=== PATIENT | female | born 1940 | race Caucasian/White ===

== ENCOUNTER 2017-06-21 15:49 | Inpatient (IN) ==
[2017-06-21] MEDS ORDERED: SODIUM CHLORIDE 0.9% 500 ML IV STA (16:43)
[2017-06-21] MEDS ORDERED: HYDROmorphone 2 MG/1 ML VIAL IV STA (16:43)
[2017-06-21] MEDS ORDERED: ONDANSETRON 4 MG/2 ML VIAL IV STA ×2 (16:43→21:16)
[2017-06-21] MEDS ORDERED: PANTOPRAZOLE 40 MG VIAL IV STA (16:43)
[2017-06-21] MEDS ORDERED: PANTOPRAZOLE 40 MG VIAL IV ONE (16:53)
[2017-06-21] MEDS ORDERED: ONDANSETRON 4 MG/2 ML VIAL ONE ×2 (16:53→21:20)
[2017-06-21] MEDS ORDERED: HYDROmorphone 2 MG/1 ML VIAL ONE ×2 (16:54→21:20)
[2017-06-21 17:37] LABS: Apearance,Urine Slightly Hazy (Clear); Bacteria,Urine Many /HPF (Few); Bilirubin,Urine Negative (Negative); Blood, Urine Small mg/dL (Negative); Glucose,Urine (UA) 50 mg/dL (Negative); Ketones,Urine 20 mg/dL (Negative); Mucus,Urine Occasional /LPF (Occasional); Nitrite,Urine Negative (Negative); Protein,Urine >=500 MG/DL; RBC,Urine 3 /HPF (0-4); Urine Color Yellow (Yellow); Urine Specific Gravity 1.016 (1.001-1.035); Urine Urobilinogen < 2.0 EU/DL (0.2-1.0); WBC,Urine 27 /HPF (0-6)
[2017-06-21 17:59] LABS: Basophils # 0.1 10*3/uL (0.0-0.2); Basophils % 0.9 % (0.0-0.8); Eosinophils % 0.1 % (0.00-10.9); Hematocrit 39.6 VOL% (35.7-47.0); Hemoglobin 12.7 GM/DL (12.0-16.0); Immature Granulocytes % 0.4 %; Immature Granulocytes Absolute 0.03 #; Lymphocytes # 0.9 10*3/uL (1.4-4.0); Lymphocytes % 12.6 % (21.3-54.2); Mean Corpuscular HGB Conc 32.1 GM/DL (32-36); Mean Corpuscular Hemoglobin 26 PG (27-34); Mean Platelet Volume 12.3 FL (9.6-12.0); Monocytes # 0.6 10*3/uL (0.11-0.8); Monocytes % 8.6 % (1.7-12.7); Neutrophils # 5.4 10*3/uL (1.4-7.4); Neutrophils % 77.4 % (38.7-73.9); Platelet Count 220 T/CUMM (130-400); Red Blood Count 4.83 MC/CUMM (3.8-5.5); Red Cell Distribution Width 15.4 % (9.3-17.3)
[2017-06-21 18:29] LABS: Lactic Acid 1.5 MMOL/L (0.4-2.0)
[2017-06-21 18:31] LABS: Albumin 3.4 G/DL (3.4-5.0); Bilirubin,Total 0.9 MG/DL (0.2-1.0); Calcium 8.5 MG/DL (8.5-10.1); Osmolality,Calculated 283.5 MOS/KG (273-304); Potassium 3.8 MMOL/L (3.5-5.1); Total Protein 6.1 G/DL (6.4-8.3); Troponin I Only 0.018 NG/ML (0.00-0.045)
[2017-06-21] MEDS ORDERED: cefTRIAXone 1,000 MG in SODIUM CHLORIDE 0.9% 100 ML IV STA (21:07)
[2017-06-21] MEDS ORDERED: HYDROmorphone 2 MG/1 ML VIAL IV ONE (21:15)
[2017-06-21] MEDS ORDERED: cefTRIAXone 1,000 MG VIAL ONE (21:20)
[2017-06-21] MEDS ORDERED: ONDANSETRON 4 MG/2 ML VIAL IV PRN (23:03)
[2017-06-21] MEDS ORDERED: ZALEPLON 5 MG CAPSULE PO PRN (23:03)
[2017-06-21] MEDS ORDERED: PROMETHAZINE 25 MG/1 ML VIAL IM PRN (23:03)
[2017-06-21] MEDS ORDERED: DEXTROSE 50% 25 GM/50 ML VIAL IV PRN (23:49)
[2017-06-21] MEDS ORDERED: GLUCAGON 1 MG VIAL IM PRN (23:49)
[2017-06-21] MEDS ORDERED: hydrALAZINE 20 MG/1 ML VIAL IV PRN (23:49)
[2017-06-22] MEDS: SODIUM BICARB INJ 50 MEQ in SODIUM CHLORIDE 0.45% 1,000 ML IV SCH ×2 (01:06→13:05)
[2017-06-22 05:26] LABS: Basophils # 0.1 10*3/uL (0.0-0.2); Basophils % 0.7 % (0.0-0.8); Eosinophils % 0.1 % (0.00-10.9); Hematocrit 39.7 VOL% (35.7-47.0); Hemoglobin 12.6 GM/DL (12.0-16.0); Immature Granulocytes % 0.7 %; Immature Granulocytes Absolute 0.05 #; Lymphocytes # 1.3 10*3/uL (1.4-4.0); Lymphocytes % 18.8 % (21.3-54.2); Mean Corpuscular HGB Conc 31.7 GM/DL (32-36); Mean Corpuscular Hemoglobin 26 PG (27-34); Mean Corpuscular Volume 83.2 FL (87-102); Monocytes # 0.7 10*3/uL (0.11-0.8); Monocytes % 10.4 % (1.7-12.7); Neutrophils # 4.9 10*3/uL (1.4-7.4); Neutrophils % 69.3 % (38.7-73.9); Platelet Count 213 T/CUMM (130-400); Red Blood Count 4.77 MC/CUMM (3.8-5.5); Red Cell Distribution Width 15.5 % (9.3-17.3)
[2017-06-22 05:59] LABS: Albumin 3.3 G/DL (3.4-5.0); Bilirubin,Total 0.6 MG/DL (0.2-1.0); Calcium 8.6 MG/DL (8.5-10.1); Osmolality,Calculated 286.3 MOS/KG (273-304); Potassium 3.8 MMOL/L (3.5-5.1); Total Protein 5.9 G/DL (6.4-8.3)
[2017-06-22] MEDS: INSULIN REGULAR 100 UNIT/ML SUBCUT SCH ×3 (07:41→16:40)
[2017-06-22] MEDS ORDERED: CARVEDILOL 12.5 MG TABLET PO SCH (09:00)
[2017-06-22] MEDS ORDERED: ENOXAPARIN 30 MG/0.3 ML SYRINGE SUBCUT SCH (09:00)
[2017-06-22] MEDS ORDERED: sitaGLIPtin 25 MG TABLET PO SCH (09:00)
[2017-06-22] MEDS ORDERED: MELOXICAM 7.5 MG TABLET PO SCH (09:00)
[2017-06-22] MEDS ORDERED: PANTOPRAZOLE 40 MG TABLET PO SCH (09:00)
[2017-06-22] MEDS ORDERED: ASPIRIN EC 81 MG TABLET PO SCH (09:00)
[2017-06-22 16:12] VITALS: BP 151/70
[2017-06-22] MEDS ORDERED: ATORVASTATIN 20 MG TABLET PO SCH (21:00)
[2017-06-22] MEDS ORDERED: cefTRIAXone 1,000 MG in SYRINGE 1 EACH IV SCH (22:00)
== END 2017-06-22 18:07 | disposition home health service (06) | DRG 690 ==
LOC: EDUNIT# → EDBD → N.ED 15:49 → N.EDINP 22:20 → N.3E 23:20
PROVIDERS: ADMIT Internal Medicine; ATTEND Internal Medicine

== ENCOUNTER 2017-06-27 14:49 | Inpatient (IN) ==
[2017-06-27] MEDS ORDERED: SODIUM CHLORIDE 0.9% 1,000 ML IV STA (15:15)
[2017-06-27] MEDS ORDERED: DICYCLOMINE 20 MG/2 ML AMP IM ONE (15:15)
[2017-06-27] MEDS ORDERED: ONDANSETRON 4 MG/2 ML VIAL IV STA (15:15)
[2017-06-27] MEDS ORDERED: LOPERAMIDE 2 MG CAPSULE PO STA (15:15)
[2017-06-27] MEDS ORDERED: METOCLOPRAMIDE 10 MG/2 ML VIAL IV STA (15:15)
[2017-06-27 16:41] LABS: Basophils # 0.1 10*3/uL (0.0-0.2); Eosinophils # 0.2 10*3/uL (0.0-0.87); Eosinophils % 1.9 % (0.00-10.9); Hematocrit 39.8 VOL% (35.7-47.0); Hemoglobin 12.6 GM/DL (12.0-16.0); Immature Granulocytes % 1.1 %; Immature Granulocytes Absolute 0.09 #; Lymphocytes # 1.5 10*3/uL (1.4-4.0); Lymphocytes % 18.6 % (21.3-54.2); Mean Corpuscular HGB Conc 31.7 GM/DL (32-36); Mean Corpuscular Hemoglobin 26 PG (27-34); Mean Corpuscular Volume 82.6 FL (87-102); Monocytes # 0.9 10*3/uL (0.11-0.8); Monocytes % 10.9 % (1.7-12.7); Neutrophils # 5.4 10*3/uL (1.4-7.4); Neutrophils % 66.5 % (38.7-73.9); Platelet Count 149 T/CUMM (130-400); Red Blood Count 4.82 MC/CUMM (3.8-5.5); Red Cell Distribution Width 15.3 % (9.3-17.3); White Blood Count 8.1 T/CUMM (4-12)
[2017-06-27 17:01] LABS: Bilirubin,Total 0.4 MG/DL (0.2-1.0); Calcium 8.3 MG/DL (8.5-10.1); Osmolality,Calculated 291.8 MOS/KG (273-304); Potassium 3.1 MMOL/L (3.5-5.1); Total Protein 5.8 G/DL (6.4-8.3)
[2017-06-27] MEDS ORDERED: LOPERAMIDE 2 MG CAPSULE ONE (17:06)
[2017-06-27] MEDS ORDERED: ONDANSETRON 4 MG/2 ML VIAL ONE (17:06)
[2017-06-27] MEDS ORDERED: METOCLOPRAMIDE 10 MG/2 ML VIAL ONE (17:06)
[2017-06-27] MEDS ORDERED: DICYCLOMINE 20 MG TABLET ONE (17:06)
[2017-06-27 18:16] LABS: Apearance,Urine Slightly Hazy (Clear); Bilirubin,Urine Negative (Negative); Blood, Urine Negative (Negative); Glucose,Urine (UA) Negative (Negative); Hyaline Casts,Urine 1 /LPF (0-3); Ketones,Urine Negative (Negative); Mucus,Urine Occasional /LPF (Occasional); Nitrite,Urine Negative (Negative); Protein,Urine >=500 MG/DL; Squamous Epithelial Cell,Urine Occasional /HPF (0-10); Urine Color Yellow (Yellow); Urine Specific Gravity 1.015 (1.001-1.035); Urine Urobilinogen < 2.0 EU/DL (0.2-1.0); WBC,Urine 1 /HPF (0-6)
[2017-06-27] MEDS ORDERED: POTASSIUM CHLORIDE RIDER 10 MEQ in PREMIX 1 EACH IV PRN (18:52)
[2017-06-27] MEDS ORDERED: KETOROLAC 10 MG TABLET PO PRN (18:55)
[2017-06-27] MEDS: SODIUM CHLORIDE 0.9% 1,000 ML IV SCH (20:54)
[2017-06-27] MEDS: POTASSIUM CHLORIDE 20 MEQ TABLET PO PRN (22:10)
[2017-06-28] MEDS: POTASSIUM CHLORIDE 20 MEQ TABLET PO PRN ×3 (00:20→04:35)
[2017-06-28] MEDS: SODIUM CHLORIDE 0.9% 1,000 ML IV SCH ×3 (04:35→21:40)
[2017-06-28 05:23] LABS: Basophils # 0.1 10*3/uL (0.0-0.2); Basophils % 1.1 % (0.0-0.8); Eosinophils # 0.2 10*3/uL (0.0-0.87); Eosinophils % 2.7 % (0.00-10.9); Hematocrit 36.8 VOL% (35.7-47.0); Hemoglobin 11.7 GM/DL (12.0-16.0); Immature Granulocytes % 1.1 %; Immature Granulocytes Absolute 0.08 #; Lymphocytes # 1.9 10*3/uL (1.4-4.0); Lymphocytes % 25.5 % (21.3-54.2); Mean Corpuscular HGB Conc 31.8 GM/DL (32-36); Mean Corpuscular Hemoglobin 26 PG (27-34); Mean Corpuscular Volume 83.1 FL (87-102); Mean Platelet Volume 13.8 FL (9.6-12.0); Monocytes # 0.7 10*3/uL (0.11-0.8); Monocytes % 10.1 % (1.7-12.7); Neutrophils # 4.4 10*3/uL (1.4-7.4); Neutrophils % 59.5 % (38.7-73.9); Platelet Count 135 T/CUMM (130-400); Red Blood Count 4.43 MC/CUMM (3.8-5.5); Red Cell Distribution Width 15.3 % (9.3-17.3); White Blood Count 7.4 T/CUMM (4-12)
[2017-06-28 05:52] LABS: Calcium 8.2 MG/DL (8.5-10.1); Osmolality,Calculated 292.4 MOS/KG (273-304); Potassium 3.8 MMOL/L (3.5-5.1)
[2017-06-28] MEDS: PANTOPRAZOLE 40 MG TABLET PO SCH (09:58)
[2017-06-28] MEDS ORDERED: DEXTROSE 50% 25 GM/50 ML VIAL IV PRN (12:53)
[2017-06-28] MEDS ORDERED: GLUCAGON 1 MG VIAL IM PRN (12:53)
[2017-06-28] MEDS: INSULIN REGULAR 100 UNIT/ML SUBCUT SCH ×2 (21:11→21:13)
[2017-06-29] MEDS: ONDANSETRON 4 MG/2 ML VIAL IV PRN ×2 (00:32→08:12)
[2017-06-29] MEDS: SODIUM CHLORIDE 0.9% 1,000 ML IV SCH ×4 (03:00→21:25)
[2017-06-29 05:52] LABS: Basophils # 0.1 10*3/uL (0.0-0.2); Basophils % 0.8 % (0.0-0.8); Eosinophils # 0.3 10*3/uL (0.0-0.87); Eosinophils % 3.3 % (0.00-10.9); Hemoglobin 11.3 GM/DL (12.0-16.0); Immature Granulocytes % 0.8 %; Immature Granulocytes Absolute 0.07 #; Lymphocytes # 1.5 10*3/uL (1.4-4.0); Mean Corpuscular HGB Conc 31.4 GM/DL (32-36); Mean Corpuscular Hemoglobin 26 PG (27-34); Mean Corpuscular Volume 83.7 FL (87-102); Mean Platelet Volume 14.4 FL (9.6-12.0); Monocytes # 0.8 10*3/uL (0.11-0.8); Monocytes % 9.4 % (1.7-12.7); Neutrophils # 6.2 10*3/uL (1.4-7.4); Neutrophils % 68.7 % (38.7-73.9); Platelet Count 116 T/CUMM (130-400); Red Cell Distribution Width 15.6 % (9.3-17.3)
[2017-06-29 06:16] LABS: Calcium 8.3 MG/DL (8.5-10.1); Osmolality,Calculated 290.7 MOS/KG (273-304); Potassium 3.9 MMOL/L (3.5-5.1)
[2017-06-29] MEDS: INSULIN REGULAR 100 UNIT/ML SUBCUT SCH ×5 (07:30→22:03)
[2017-06-29] MEDS: PANTOPRAZOLE 40 MG TABLET PO SCH (08:11)
[2017-06-29] MEDS: CARVEDILOL 12.5 MG TABLET PO SCH (14:00)
[2017-06-29] MEDS ORDERED: FLUCONAZOLE INJ 200 MG in PREMIX 1 EACH IV ONE (17:33)
[2017-06-29] MEDS ORDERED: CITALOPRAM 20 MG TABLET PO SCH (21:00)
[2017-06-29 22:40] LABS: Protein/Creatinine Ratio,Urine 0.9 RATIO
[2017-06-30] MEDS: SODIUM CHLORIDE 0.9% 1,000 ML IV SCH ×2 (03:56→12:05)
[2017-06-30] MEDS: PANTOPRAZOLE 40 MG TABLET PO SCH (08:44)
[2017-06-30] MEDS: CARVEDILOL 12.5 MG TABLET PO SCH (08:44)
[2017-06-30] MEDS: INSULIN REGULAR 100 UNIT/ML SUBCUT SCH ×2 (08:46→11:27)
[2017-06-30] MEDS ORDERED: ASPIRIN EC 81 MG TABLET PO SCH (09:00)
[2017-06-30] MEDS ORDERED: ATORVASTATIN 20 MG TABLET PO SCH (09:00)
[2017-06-30 11:16] VITALS: BP 153/74
== END 2017-06-30 14:21 | disposition swing bed (61) | DRG 684 ==
LOC: EDUNIT# → EDBD → N.ED 14:49 → N.EDINP 17:56 → N.3E 19:50
PROVIDERS: ADMIT Internal Medicine Geriatric Medicine; ATTEND Internal Medicine Geriatric Medicine

== ENCOUNTER 2021-01-21 14:02 | Inpatient (IN) ==
[2021-01-21 16:39] LABS: Basophils # 0.1 10*3/uL (0.0-0.2); Basophils % 1.3 % (0.0-0.8); Eosinophils # 0.4 10*3/uL (0.0-0.87); Hematocrit 41.2 VOL% (35.7-47.0); Hemoglobin 13.1 GM/DL (12.0-16.0); Immature Granulocytes % 0.3 %; Immature Granulocytes Absolute 0.02 #; Lymphocytes # 0.9 10*3/uL (1.4-4.0); Lymphocytes % 15.4 % (21.3-54.2); Mean Corpuscular HGB Conc 31.8 GM/DL (32-36); Mean Corpuscular Volume 89.2 FL (87-102); Mean Platelet Volume 12.6 FL (9.6-12.0); Monocytes % 10.8 % (1.7-12.7); Neutrophils % 65.2 % (38.7-73.9); Platelet Count 116 T/CUMM (130-400); Red Blood Count 4.62 MC/CUMM (3.8-5.5); Red Cell Distribution Width 13.4 % (9.3-17.3); White Blood Count 6.1 T/CUMM (4-12)
[2021-01-21 16:59] LABS: Albumin 3.2 G/DL (3.4-5.0); Bilirubin,Total 0.6 MG/DL (0.20-1.00); Calcium 8.6 MG/DL (8.5-10.1); Osmolality,Calculated 291.1 MOS/KG (273-304); Potassium 4.1 MMOL/L (3.5-5.1); Total Protein 5.4 G/DL (6.4-8.2)
[2021-01-21 17:18] LABS: Ovalocytes Few
[2021-01-21 17:19] LABS: Burr Cells Slight; Microcytosis Slight
[2021-01-21] MEDS ORDERED: hydrALAZINE 20 MG/1 ML VIAL ONE (17:35)
[2021-01-21] MEDS ORDERED: hydrALAZINE 20 MG/1 ML VIAL IV STA ×2 (17:35→20:00)
[2021-01-21 18:05] LABS: Bacteria,Urine Moderate /HPF (Few); Bilirubin,Urine Negative (Negative); Blood, Urine Negative (Negative); Glucose,Urine (UA) 50 mg/dL (Negative); Ketones,Urine 5 mg/dL (Negative); Mucus,Urine Occasional /LPF (Occasional); Nitrite,Urine Negative (Negative); Protein,Urine >=500 MG/DL; Urine Appearance CLEAR (Clear); Urine Color Yellow (Yellow); Urine Specific Gravity 1.018 (1.001-1.035); Urine Urobilinogen < 2.0 EU/DL (0.2-1.0)
[2021-01-21 18:23] LABS: Ammonia < 10 UMOL/L (11-32)
[2021-01-21 18:26] LABS: Lactic Acid 1.2 MMOL/L (0.4-2.0)
[2021-01-21] MEDS: carvediloL 6.25 MG TABLET PO SCH (23:45)
[2021-01-21] MEDS ORDERED: NITROGLYCERIN 2% OINT 1 INCH/GM PACK TOP STA (23:55)
[2021-01-22] MEDS ORDERED: ONDANSETRON 4 MG/2 ML VIAL IV PRN (03:08)
[2021-01-22] MEDS ORDERED: ACETAMINOPHEN 325 MG TABLET PO PRN (03:08)
[2021-01-22] MEDS ORDERED: GLUCAGON 1 MG VIAL IM PRN (03:08)
[2021-01-22] MEDS ORDERED: guaiFENesin/DM ER 600-30 MG TABLET PO PRN (03:08)
[2021-01-22] MEDS ORDERED: DEXTROSE 50% 25 GM/50 ML VIAL IV PRN (03:08)
[2021-01-22 05:36] LABS: Basophils # 0.1 10*3/uL (0.0-0.2); Basophils % 1.4 % (0.0-0.8); Eosinophils # 0.2 10*3/uL (0.0-0.87); Eosinophils % 2.6 % (0.00-10.9); Hematocrit 43.4 VOL% (35.7-47.0); Hemoglobin 13.7 GM/DL (12.0-16.0); Immature Granulocytes % 0.5 %; Immature Granulocytes Absolute 0.04 #; Lymphocytes # 0.9 10*3/uL (1.4-4.0); Lymphocytes % 10.4 % (21.3-54.2); Mean Corpuscular HGB Conc 31.6 GM/DL (32-36); Mean Corpuscular Volume 89.9 FL (87-102); Mean Platelet Volume 13.5 FL (9.6-12.0); Monocytes % 6.1 % (1.7-12.7); Platelet Count 140 T/CUMM (130-400); Red Blood Count 4.83 MC/CUMM (3.8-5.5); Red Cell Distribution Width 13.3 % (9.3-17.3); White Blood Count 8.7 T/CUMM (4-12)
[2021-01-22 06:14] LABS: Osmolality,Calculated 288.4 MOS/KG (273-304); Potassium 3.8 MMOL/L (3.5-5.1); Risk Ratio 1.99; VLDL Cholesterol 22.2 MG/DL
[2021-01-22] MEDS: ASPIRIN EC 81 MG TABLET PO SCH (10:04)
[2021-01-22] MEDS: carvediloL 6.25 MG TABLET PO SCH ×2 (10:05→21:33)
[2021-01-22] MEDS: PANTOPRAZOLE 40 MG TABLET PO SCH (10:05)
[2021-01-22] MEDS: DONEPEZIL 10 MG TABLET PO SCH (10:05)
[2021-01-22] MEDS: DOCUSATE SODIUM 100 MG CAPSULE PO SCH ×2 (10:05→21:32)
[2021-01-22] MEDS: CLOPIDOGREL 75 MG TABLET PO SCH (10:05)
[2021-01-22] MEDS: ATORVASTATIN 40 MG TABLET PO SCH (10:05)
[2021-01-22] MEDS: MEMANTINE 10 MG TABLET PO SCH ×2 (10:06→21:33)
[2021-01-22] MEDS: ENOXAPARIN 30 MG/0.3 ML SYRINGE SUBCUT SCH (10:08)
[2021-01-22] MEDS: SODIUM CHLORIDE 0.45% 1,000 ML IV SCH ×2 (10:50→18:37)
[2021-01-22] MEDS ORDERED: cloNIDine 0.2 MG/24 HR PATCH TRANSDERM SCH ×2 (14:30→21:00)
[2021-01-22] MEDS: QUEtiapine 25 MG TABLET PO SCH (21:33)
[2021-01-23] MEDS: SODIUM CHLORIDE 0.45% 1,000 ML IV SCH ×2 (00:10→20:19)
[2021-01-23 05:50] LABS: Basophils # 0.1 10*3/uL (0.0-0.2); Basophils % 1.4 % (0.0-0.8); Eosinophils # 0.2 10*3/uL (0.0-0.87); Eosinophils % 4.1 % (0.00-10.9); Hematocrit 36.6 VOL% (35.7-47.0); Immature Granulocytes % 0.4 %; Immature Granulocytes Absolute 0.02 #; Lymphocytes # 1.2 10*3/uL (1.4-4.0); Lymphocytes % 20.6 % (21.3-54.2); Mean Corpuscular Volume 89.5 FL (87-102); Mean Platelet Volume 13.4 FL (9.6-12.0); Monocytes % 9.8 % (1.7-12.7); Neutrophils % 63.7 % (38.7-73.9); Red Blood Count 4.09 MC/CUMM (3.8-5.5); Red Cell Distribution Width 13.1 % (9.3-17.3)
[2021-01-23 06:00] LABS: Calcium 8.1 MG/DL (8.5-10.1); Hemoglobin 11.7 GM/DL (12.0-16.0); Osmolality,Calculated 285.4 MOS/KG (273-304); Platelet Count 95 T/CUMM (130-400); Potassium 3.7 MMOL/L (3.5-5.1); White Blood Count 5.6 T/CUMM (4-12)
[2021-01-23 06:40] LABS: Anisocytosis 1+; Burr Cells Few; Ovalocytes Few; Platelet Estimate Decreased; Spherocytes 1+
[2021-01-23] MEDS: hydrALAZINE 20 MG/1 ML VIAL IV PRN (07:31)
[2021-01-23] MEDS: PANTOPRAZOLE 40 MG TABLET PO SCH (09:33)
[2021-01-23] MEDS: CLOPIDOGREL 75 MG TABLET PO SCH (09:33)
[2021-01-23] MEDS: DONEPEZIL 10 MG TABLET PO SCH (09:33)
[2021-01-23] MEDS: carvediloL 6.25 MG TABLET PO SCH ×2 (09:33→21:10)
[2021-01-23] MEDS: DOCUSATE SODIUM 100 MG CAPSULE PO SCH ×2 (09:33→21:10)
[2021-01-23] MEDS: ASPIRIN EC 81 MG TABLET PO SCH (09:33)
[2021-01-23] MEDS: MEMANTINE 10 MG TABLET PO SCH ×2 (09:33→21:11)
[2021-01-23] MEDS: ATORVASTATIN 40 MG TABLET PO SCH (09:33)
[2021-01-23] MEDS: ENOXAPARIN 30 MG/0.3 ML SYRINGE SUBCUT SCH (09:33)
[2021-01-23] MEDS: amLODIPine 5 MG TABLET PO SCH (09:33)
[2021-01-23] MEDS: QUEtiapine 25 MG TABLET PO SCH (21:11)
[2021-01-24] MEDS: SODIUM CHLORIDE 0.45% 1,000 ML IV SCH ×2 (03:05→12:41)
[2021-01-24] MEDS: hydrALAZINE 20 MG/1 ML VIAL IV PRN (04:02)
[2021-01-24 04:58] LABS: Basophils # 0.1 10*3/uL (0.0-0.2); Basophils % 0.9 % (0.0-0.8); Eosinophils # 0.3 10*3/uL (0.0-0.87); Eosinophils % 4.1 % (0.00-10.9); Hematocrit 37.8 VOL% (35.7-47.0); Hemoglobin 12.2 GM/DL (12.0-16.0); Immature Granulocytes % 0.4 %; Immature Granulocytes Absolute 0.03 #; Lymphocytes % 12.6 % (21.3-54.2); Mean Corpuscular HGB Conc 32.3 GM/DL (32-36); Mean Corpuscular Volume 87.7 FL (87-102); Mean Platelet Volume 13.5 FL (9.6-12.0); Monocytes % 8.5 % (1.7-12.7); Neutrophils % 73.5 % (38.7-73.9); Platelet Count 100 T/CUMM (130-400); Red Blood Count 4.31 MC/CUMM (3.8-5.5); Red Cell Distribution Width 13.2 % (9.3-17.3); White Blood Count 7.8 T/CUMM (4-12)
[2021-01-24 05:09] LABS: Potassium 3.5 MMOL/L (3.5-5.1)
[2021-01-24] MEDS: PANTOPRAZOLE 40 MG TABLET PO SCH (09:57)
[2021-01-24] MEDS: DONEPEZIL 10 MG TABLET PO SCH (09:57)
[2021-01-24] MEDS: ASPIRIN EC 81 MG TABLET PO SCH (09:57)
[2021-01-24] MEDS: MEMANTINE 10 MG TABLET PO SCH (09:57)
[2021-01-24] MEDS: carvediloL 6.25 MG TABLET PO SCH (09:57)
[2021-01-24] MEDS: CLOPIDOGREL 75 MG TABLET PO SCH (09:57)
[2021-01-24] MEDS: DOCUSATE SODIUM 100 MG CAPSULE PO SCH (09:57)
[2021-01-24] MEDS: ENOXAPARIN 30 MG/0.3 ML SYRINGE SUBCUT SCH (09:57)
[2021-01-24] MEDS: ATORVASTATIN 40 MG TABLET PO SCH (09:57)
[2021-01-24] MEDS: amLODIPine 5 MG TABLET PO SCH (09:57)
[2021-01-24 12:07] VITALS: BP 152/66
== END 2021-01-24 15:20 | disposition home health service (06) | DRG 78 ==
LOC: N.ED 14:02 → N.EDINP 14:02 → N.TELES 01-22 01:20
PROVIDERS: ADMIT Hospitalist; ATTEND Hospitalist

== ENCOUNTER 2021-08-09 14:24 | Observation (INO) ==
[2021-08-09 16:36] LABS: Glucose,Urine (UA) 250 mg/dL (Negative); Protein,Urine >=300 MG/DL; Urine Appearance Clear (Clear); Urine Color Yellow (Yellow); Urine Specific Gravity 1.015 (1.001-1.035)
[2021-08-09 16:37] LABS: Bilirubin,Urine Negative (Negative); Blood, Urine Negative (Negative); Ketones,Urine Negative (Negative); Nitrite,Urine Negative (Negative); Urine Urobilinogen 0.2 EU/DL (<2.0)
[2021-08-09 16:56] LABS: Bacteria,Urine Occasional /HPF (Few); Squamous Epithelial Cell,Urine Occasional /HPF (0-10)
[2021-08-09 17:36] LABS: Albumin 3.1 G/DL (3.4-5.0); Bilirubin,Total 0.5 MG/DL (0.20-1.00); Calcium 9.2 MG/DL (8.5-10.1); Osmolality,Calculated 313.7 MOS/KG (273-304); Potassium 4.7 MMOL/L (3.5-5.1); Total Protein 5.9 G/DL (6.4-8.2)
[2021-08-09 17:43] LABS: Basophils # 0.1 10*3/uL (0.0-0.2); Basophils % 0.7 % (0.0-0.8); Eosinophils # 0.5 10*3/uL (0.0-0.87); Eosinophils % 7.1 % (0.00-10.9); Hemoglobin 12.2 GM/DL (12.0-16.0); Immature Granulocytes % 0.3 %; Immature Granulocytes Absolute 0.02 #; Lymphocytes % 13.8 % (21.3-54.2); Mean Corpuscular HGB Conc 32.1 GM/DL (32-36); Mean Corpuscular Volume 91.1 FL (87-102); Mean Platelet Volume 14.1 FL (9.6-12.0); Monocytes % 10.4 % (1.7-12.7); Neutrophils % 67.7 % (38.7-73.9); Platelet Count 90 T/CUMM (130-400); Red Blood Count 4.17 MC/CUMM (3.8-5.5); Red Cell Distribution Width 14.5 % (9.3-17.3); White Blood Count 7.2 T/CUMM (4-12)
[2021-08-09 18:04] LABS: Platelet Estimate Decreased
[2021-08-09] MEDS ORDERED: DEXTROSE 10% 250 ML BAG IV PRN (18:22)
[2021-08-09] MEDS ORDERED: guaiFENesin/DM ER 600-30 MG TABLET PO PRN (18:22)
[2021-08-09] MEDS ORDERED: NICOTINE 21 MG/24 HR PATCH TRANSDERM PRN (18:22)
[2021-08-09] MEDS ORDERED: GLUCAGON 1 MG VIAL IM PRN (18:22)
[2021-08-09] MEDS ORDERED: hydrALAZINE 20 MG/1 ML VIAL IV PRN (18:22)
[2021-08-09] MEDS ORDERED: diphenhydrAMINE CAP 25 MG CAPSULE PO PRN (18:22)
[2021-08-09] MEDS ORDERED: ZALEPLON 5 MG CAPSULE PO PRN (18:22)
[2021-08-09] MEDS ORDERED: MORPHINE 4 MG/1 ML VIAL IV PRN (18:22)
[2021-08-09] MEDS ORDERED: ONDANSETRON 4 MG/2 ML VIAL IV PRN (18:22)
[2021-08-09] MEDS ORDERED: ACETAMINOPHEN 325 MG TABLET PO PRN (18:22)
[2021-08-09] MEDS ORDERED: SODIUM CHLORIDE 0.9% 1,000 ML IV STA (18:22)
[2021-08-09] MEDS: ALBUTEROL/IPRATROPIUM 3 ML NEB RESP TX SCH (19:41)
[2021-08-10] MEDS: ALBUTEROL/IPRATROPIUM 3 ML NEB RESP TX SCH ×4 (00:11→19:04)
[2021-08-10 04:15] LABS: Basophils # 0.1 10*3/uL (0.0-0.2); Basophils % 0.7 % (0.0-0.8); Eosinophils # 0.6 10*3/uL (0.0-0.87); Eosinophils % 7.5 % (0.00-10.9); Hematocrit 39.8 VOL% (35.7-47.0); Hemoglobin 12.9 GM/DL (12.0-16.0); Immature Granulocytes % 0.2 %; Immature Granulocytes Absolute 0.02 #; Lymphocytes # 1.3 10*3/uL (1.4-4.0); Lymphocytes % 15.8 % (21.3-54.2); Mean Corpuscular HGB Conc 32.4 GM/DL (32-36); Mean Corpuscular Volume 89.8 FL (87-102); Mean Platelet Volume 14.1 FL (9.6-12.0); Monocytes % 9.4 % (1.7-12.7); Neutrophils % 66.4 % (38.7-73.9); Red Blood Count 4.43 MC/CUMM (3.8-5.5); Red Cell Distribution Width 14.5 % (9.3-17.3); White Blood Count 8.1 T/CUMM (4-12)
[2021-08-10 04:17] LABS: Platelet Count 75 T/CUMM (130-400)
[2021-08-10 04:37] LABS: Platelet Estimate Decreased
[2021-08-10 04:56] LABS: Calcium 9.1 MG/DL (8.5-10.1); Osmolality,Calculated 308.5 MOS/KG (273-304); Potassium 4.5 MMOL/L (3.5-5.1)
[2021-08-10] MEDS: ASPIRIN EC 81 MG TABLET PO SCH (09:32)
[2021-08-10] MEDS: cloNIDine 0.1 MG TABLET PO SCH ×2 (09:32→21:30)
[2021-08-10] MEDS: BISACODYL 5 MG TABLET PO SCH (09:32)
[2021-08-10] MEDS: CLOPIDOGREL 75 MG TABLET PO SCH (09:33)
[2021-08-10] MEDS: ATORVASTATIN 40 MG TABLET PO SCH (09:33)
[2021-08-10] MEDS: carvediloL 6.25 MG TABLET PO SCH ×2 (09:33→21:30)
[2021-08-10] MEDS: MEMANTINE 10 MG TABLET PO SCH ×2 (09:33→21:30)
[2021-08-10] MEDS: PANTOPRAZOLE 40 MG TABLET PO SCH (09:33)
[2021-08-10] MEDS ORDERED: NITROGLYCERIN SL 0.4 MG TABLET SL PRN (09:36)
[2021-08-10] MEDS ORDERED: ENOXAPARIN 30 MG/0.3 ML SYRINGE SUBCUT SCH (10:00)
[2021-08-10] MEDS ORDERED: ENOXAPARIN 40 MG/0.4 ML SYRINGE SUBCUT SCH (10:00)
[2021-08-10] MEDS ORDERED: DEXTROSE 10% 250 ML BAG IV PRN (12:40)
[2021-08-10] MEDS: INSULIN LISPRO 100 UNIT/ML SUBCUT SCH ×2 (15:50→21:31)
[2021-08-10] MEDS ORDERED: DONEPEZIL 10 MG TABLET PO SCH (21:00)
[2021-08-10] MEDS ORDERED: OLANZapine 5 MG TABLET PO SCH (21:00)
[2021-08-11] MEDS: ALBUTEROL/IPRATROPIUM 3 ML NEB RESP TX SCH ×3 (02:00→13:14)
[2021-08-11 05:47] LABS: Basophils # 0.1 10*3/uL (0.0-0.2); Basophils % 0.7 % (0.0-0.8); Eosinophils # 0.6 10*3/uL (0.0-0.87); Eosinophils % 7.4 % (0.00-10.9); Hematocrit 34.8 VOL% (35.7-47.0); Hemoglobin 11.3 GM/DL (12.0-16.0); Immature Granulocytes % 0.7 %; Immature Granulocytes Absolute 0.06 #; Lymphocytes # 1.2 10*3/uL (1.4-4.0); Lymphocytes % 14.6 % (21.3-54.2); Mean Corpuscular HGB Conc 32.5 GM/DL (32-36); Mean Corpuscular Volume 90.9 FL (87-102); Mean Platelet Volume 14.8 FL (9.6-12.0); Monocytes % 8.7 % (1.7-12.7); Neutrophils % 67.9 % (38.7-73.9); Red Blood Count 3.83 MC/CUMM (3.8-5.5); Red Cell Distribution Width 14.5 % (9.3-17.3); White Blood Count 8.1 T/CUMM (4-12)
[2021-08-11 05:56] LABS: Platelet Count 79 T/CUMM (130-400)
[2021-08-11 06:11] LABS: Calcium 9.2 MG/DL (8.5-10.1); Osmolality,Calculated 302.1 MOS/KG (273-304); Potassium 4.8 MMOL/L (3.5-5.1)
[2021-08-11 06:16] LABS: Microcytosis 1+; Ovalocytes Slight
[2021-08-11 06:17] LABS: Platelet Estimate Decreased
[2021-08-11] MEDS: INSULIN LISPRO 100 UNIT/ML SUBCUT SCH ×2 (07:23→12:05)
[2021-08-11] MEDS: PANTOPRAZOLE 40 MG TABLET PO SCH (08:33)
[2021-08-11] MEDS: ATORVASTATIN 40 MG TABLET PO SCH (08:33)
[2021-08-11] MEDS: ASPIRIN EC 81 MG TABLET PO SCH (08:33)
[2021-08-11] MEDS: BISACODYL 5 MG TABLET PO SCH (08:33)
[2021-08-11] MEDS: CLOPIDOGREL 75 MG TABLET PO SCH (08:33)
[2021-08-11] MEDS: MEMANTINE 10 MG TABLET PO SCH (08:33)
[2021-08-11] MEDS: carvediloL 6.25 MG TABLET PO SCH (08:33)
[2021-08-11] MEDS: cloNIDine 0.1 MG TABLET PO SCH (08:34)
[2021-08-11] MEDS ORDERED: NON-FORMULARY MEDICATION (Omeprazole 40 mg capsule,delayed release(DR/EC)) PO SCH (09:00)
[2021-08-11 12:10] VITALS: BP 133/47
== END 2021-08-11 16:35 | disposition hospice, home (50) ==
LOC: EDUNIT# → EDBD → N.EDINP 14:24 → N.ED 14:24 → SUATTDRO 18:22 → N.5E 08-10 06:29
PROVIDERS: ADMIT Internal Medicine; ATTEND Internal Medicine

== ENCOUNTER 2021-09-03 04:54 | Inpatient (IN) ==
[2021-09-03] MEDS ORDERED: DIPH/TET/ACEL PERT BOOSTER VACCINE 0.5 ML VIAL IM ONE (05:19)
[2021-09-03] MEDS ORDERED: HYDROmorphone 1 MG/1 ML SYRINGE IV STA ×2 (05:19→07:22)
[2021-09-03] MEDS ORDERED: ONDANSETRON 4 MG/2 ML VIAL IV STA ×2 (05:19→07:23)
[2021-09-03] MEDS ORDERED: SODIUM CHLORIDE 0.9% 500 ML IV STA (05:19)
[2021-09-03 05:49] LABS: Basophils # 0.1 10*3/uL (0.0-0.2); Basophils % 0.9 % (0.0-0.8); Eosinophils # 0.6 10*3/uL (0.0-0.87); Eosinophils % 6.6 % (0.00-10.9); Hematocrit 40.7 VOL% (35.7-47.0); Hemoglobin 13.6 GM/DL (12.0-16.0); Immature Granulocytes % 0.9 %; Immature Granulocytes Absolute 0.09 #; Lymphocytes # 1.9 10*3/uL (1.4-4.0); Lymphocytes % 19.1 % (21.3-54.2); Mean Corpuscular HGB Conc 33.4 GM/DL (32-36); Mean Corpuscular Volume 88.5 FL (87-102); Mean Platelet Volume 14.1 FL (9.6-12.0); Monocytes % 9.2 % (1.7-12.7); Neutrophils % 63.3 % (38.7-73.9); Platelet Count 120 T/CUMM (130-400); Red Cell Distribution Width 14.6 % (9.3-17.3); White Blood Count 9.7 T/CUMM (4-12)
[2021-09-03 05:57] LABS: PT Patient Result 11.5 SECS (10.5-12.0)
[2021-09-03 05:59] LABS: Alanine Aminotransferase 23 U/L (13-56); Albumin 3.1 G/DL (3.4-5.0); Alkaline Phosphatase 73 U/L (45-117); Aspartate Amino Transferase 29 U/L (0-37); Blood Urea Nitrogen 109 MG/DL (7-18); Carbon Dioxide 20 MMOL/L (21-32); Estimated Glom Filtration Rate 16 ML/MIN; Glucose 209 MG/DL (74-106); Osmolality,Calculated 320.3 MOS/KG (273-304); Potassium 4.1 MMOL/L (3.5-5.1); Sodium 141 MMOL/L (136-145); Total Protein 5.9 G/DL (6.4-8.2)
[2021-09-03 06:04] LABS: Bacteria,Urine Occasional /HPF (Few); RBC,Urine 1 /HPF (0-4); Squamous Epithelial Cell,Urine Occasional /HPF (0-10)
[2021-09-03 06:05] LABS: Bilirubin,Urine Negative (Negative); Blood, Urine Negative (Negative); Glucose,Urine (UA) Negative (Negative); Ketones,Urine Negative (Negative); Nitrite,Urine Negative (Negative); Protein,Urine >=300 mg/dL (Negative); Urine Appearance Clear (Clear); Urine Color Yellow (Yellow); Urine Urobilinogen 0.2 eU/dL (<2.0); Urine pH 5.5 (4.5-8.0)
[2021-09-03] MEDS ORDERED: hydrALAZINE 20 MG/1 ML VIAL ONE (07:45)
[2021-09-03] MEDS ORDERED: hydrALAZINE 20 MG/1 ML VIAL IV STA (07:47)
[2021-09-03] MEDS: LACTATED RINGERS 1,000 ML IV SCH ×2 (08:56→23:32)
[2021-09-03] MEDS ORDERED: NITROGLYCERIN SL 0.4 MG TABLET SL PRN (09:07)
[2021-09-03] MEDS ORDERED: INSULIN GLARGINE 100 UNIT/ML SUBCUT PRN (09:07)
[2021-09-03] MEDS ORDERED: hydrALAZINE 20 MG/1 ML VIAL IV PRN ×2 (09:09→10:36)
[2021-09-03] MEDS ORDERED: fentaNYL 100 MCG/2 ML VIAL ONE (09:27)
[2021-09-03] MEDS ORDERED: LIDOCAINE 2% 5 ML VIAL ONE (09:27)
[2021-09-03] MEDS ORDERED: ETOMIDATE 40 MG/20 ML VIAL IV ONE (09:27)
[2021-09-03] MEDS ORDERED: propofoL 200 MG/20 ML VIAL IV ONE (09:27)
[2021-09-03] MEDS ORDERED: carvediloL 12.5 MG TABLET PO SCH (09:30)
[2021-09-03] MEDS ORDERED: ROCURONIUM 50 MG/5 ML VIAL IV ONE (10:36)
[2021-09-03] MEDS ORDERED: GLUCAGON 1 MG VIAL IM PRN (10:36)
[2021-09-03] MEDS ORDERED: DEXTROSE 10% 250 ML BAG IV PRN (10:39)
[2021-09-03] MEDS ORDERED: ESMOLOL 100 MG/10 ML VIAL IV ONE (11:04)
[2021-09-03] MEDS ORDERED: ceFAZolin 1,000 MG VIAL ONE (11:17)
[2021-09-03] MEDS ORDERED: SODIUM CHLORIDE 0.9% 1,000 ML IV ONE (11:42)
[2021-09-03] MEDS ORDERED: NEOSTIGMINE 10 MG/10 ML VIAL ONE (11:42)
[2021-09-03] MEDS ORDERED: GLYCOPYRROLATE 0.4 MG/2 ML VIAL ONE (11:42)
[2021-09-03] MEDS ORDERED: ONDANSETRON 4 MG/2 ML VIAL ONE (11:50)
[2021-09-03] MEDS ORDERED: SEVOFLURANE 1 UNIT/15 MINUTE INH ONE (11:57)
[2021-09-03] MEDS ORDERED: diphenhydrAMINE CAP 25 MG CAPSULE PO PRN (12:04)
[2021-09-03] MEDS ORDERED: ONDANSETRON 4 MG/2 ML VIAL IV PRN (12:04)
[2021-09-03] MEDS ORDERED: MORPHINE 2 MG/1 ML SYRINGE IV PRN (12:04)
[2021-09-03] MEDS ORDERED: BISACODYL 10 MG SUPP RECTAL PRN (12:04)
[2021-09-03] MEDS ORDERED: LACTULOSE 20 GM/30 ML UDCUP PO PRN (12:04)
[2021-09-03] MEDS ORDERED: MAGNESIUM HYDROXIDE SUSP 30 ML UDCUP PO PRN (12:04)
[2021-09-03] MEDS ORDERED: LABETALOL 20 MG/4 ML SYRINGE IV ONE (12:31)
[2021-09-03] MEDS: INSULIN LISPRO 100 UNIT/ML SUBCUT SCH ×3 (15:31→22:29)
[2021-09-03] MEDS: cloNIDine 0.1 MG TABLET PO SCH ×2 (15:31→22:30)
[2021-09-03] MEDS: carvediloL 12.5 MG TABLET PO SCH (18:07)
[2021-09-03] MEDS: MEMANTINE 10 MG TABLET PO SCH (22:29)
[2021-09-03] MEDS: DONEPEZIL 10 MG TABLET PO SCH ×2 (22:29→22:51)
[2021-09-03] MEDS: DOCUSATE SODIUM 100 MG CAPSULE PO SCH (22:29)
[2021-09-03] MEDS: MAGNESIUM CHLORIDE 64 MG TABLET PO SCH (22:30)
[2021-09-03] MEDS: OLANZapine 5 MG TABLET PO SCH ×2 (22:30→22:51)
[2021-09-04 04:46] LABS: Basophils # 0.1 10*3/uL (0.0-0.2); Basophils % 0.5 % (0.0-0.8); Eosinophils # 0.1 10*3/uL (0.0-0.87); Eosinophils % 0.4 % (0.00-10.9); Hematocrit 30.6 VOL% (35.7-47.0); Hemoglobin 9.9 GM/DL (12.0-16.0); Immature Granulocytes % 0.5 %; Immature Granulocytes Absolute 0.07 #; Lymphocytes # 0.8 10*3/uL (1.4-4.0); Lymphocytes % 6.1 % (21.3-54.2); Mean Corpuscular HGB Conc 32.4 GM/DL (32-36); Mean Corpuscular Volume 90.8 FL (87-102); Monocytes % 13.3 % (1.7-12.7); Neutrophils % 79.2 % (38.7-73.9); Platelet Count 101 T/CUMM (130-400); Red Blood Count 3.37 MC/CUMM (3.8-5.5); Red Cell Distribution Width 14.8 % (9.3-17.3); White Blood Count 13.3 T/CUMM (4-12)
[2021-09-04 04:59] LABS: Calcium 8.4 MG/DL (8.5-10.1); Osmolality,Calculated 315.7 MOS/KG (273-304); Potassium 4.6 MMOL/L (3.5-5.1)
[2021-09-04] MEDS: DOCUSATE SODIUM 100 MG CAPSULE PO SCH ×2 (08:56→21:06)
[2021-09-04] MEDS: INSULIN LISPRO 100 UNIT/ML SUBCUT SCH ×4 (08:56→21:05)
[2021-09-04] MEDS: cloNIDine 0.1 MG TABLET PO SCH ×2 (08:57→21:06)
[2021-09-04] MEDS: CLOPIDOGREL 75 MG TABLET PO SCH (08:57)
[2021-09-04] MEDS: ASPIRIN EC 81 MG TABLET PO SCH (08:57)
[2021-09-04] MEDS: carvediloL 12.5 MG TABLET PO SCH ×2 (08:57→16:13)
[2021-09-04] MEDS: ATORVASTATIN 40 MG TABLET PO SCH (08:57)
[2021-09-04] MEDS: MEMANTINE 10 MG TABLET PO SCH ×2 (08:57→21:06)
[2021-09-04] MEDS ORDERED: NON-FORMULARY MEDICATION (Cranberry 500 mg Capsule) PO SCH (09:00)
[2021-09-04] MEDS: PANTOPRAZOLE 40 MG TABLET PO SCH (09:01)
[2021-09-04] MEDS: ENOXAPARIN 30 MG/0.3 ML SYRINGE SUBCUT SCH (11:42)
[2021-09-04] MEDS: ALBUTEROL 1.25 MG/3 ML NEB RESP TX SCH ×2 (14:23→23:15)
[2021-09-04] MEDS ORDERED: TUBERCULIN SKIN TEST 0.1 ML SYRINGE INTRADERM ONE (16:35)
[2021-09-04] MEDS: DONEPEZIL 10 MG TABLET PO SCH (21:01)
[2021-09-04] MEDS: OLANZapine 5 MG TABLET PO SCH (21:02)
[2021-09-04] MEDS: ACETAMINOPHEN 325 MG TABLET PO PRN (21:06)
[2021-09-04] MEDS: MAGNESIUM CHLORIDE 64 MG TABLET PO SCH (21:06)
[2021-09-05 06:04] LABS: Basophils % 0.3 % (0.0-0.8); Eosinophils % 0.1 % (0.00-10.9); Hematocrit 23.2 VOL% (35.7-47.0); Hemoglobin 7.4 GM/DL (12.0-16.0); Immature Granulocytes % 1.1 %; Immature Granulocytes Absolute 0.12 #; Lymphocytes # 0.8 10*3/uL (1.4-4.0); Lymphocytes % 7.1 % (21.3-54.2); Mean Corpuscular HGB Conc 31.9 GM/DL (32-36); Mean Corpuscular Volume 92.8 FL (87-102); Mean Platelet Volume 14.3 FL (9.6-12.0); Monocytes % 10.7 % (1.7-12.7); Neutrophils % 80.7 % (38.7-73.9); Platelet Count 70 T/CUMM (130-400); Red Cell Distribution Width 15.4 % (9.3-17.3); White Blood Count 11.1 T/CUMM (4-12)
[2021-09-05 06:20] LABS: Calcium 8.8 MG/DL (8.5-10.1); Potassium 4.6 MMOL/L (3.5-5.1)
[2021-09-05] MEDS: ALBUTEROL 1.25 MG/3 ML NEB RESP TX SCH ×3 (07:05→23:29)
[2021-09-05 07:06] LABS: Platelet Estimate Adequate
[2021-09-05] MEDS: cloNIDine 0.1 MG TABLET PO SCH ×2 (08:37→21:07)
[2021-09-05] MEDS: ASPIRIN EC 81 MG TABLET PO SCH (08:37)
[2021-09-05] MEDS: PANTOPRAZOLE 40 MG TABLET PO SCH (08:38)
[2021-09-05] MEDS: MEMANTINE 10 MG TABLET PO SCH ×2 (08:38→21:07)
[2021-09-05] MEDS: ATORVASTATIN 40 MG TABLET PO SCH (08:38)
[2021-09-05] MEDS: DOCUSATE SODIUM 100 MG CAPSULE PO SCH ×2 (08:38→21:06)
[2021-09-05] MEDS: carvediloL 12.5 MG TABLET PO SCH ×2 (08:38→18:15)
[2021-09-05] MEDS: CLOPIDOGREL 75 MG TABLET PO SCH (08:42)
[2021-09-05] MEDS: INSULIN LISPRO 100 UNIT/ML SUBCUT SCH ×4 (08:45→21:07)
[2021-09-05] MEDS ORDERED: SODIUM CHLORIDE 0.9% 1,000 ML IV PRN (11:46)
[2021-09-05] MEDS: ENOXAPARIN 30 MG/0.3 ML SYRINGE SUBCUT SCH (13:12)
[2021-09-05] MEDS: OLANZapine 5 MG TABLET PO SCH (21:06)
[2021-09-05] MEDS: ACETAMINOPHEN 325 MG TABLET PO PRN (21:06)
[2021-09-05] MEDS: MAGNESIUM CHLORIDE 64 MG TABLET PO SCH (21:06)
[2021-09-05] MEDS: DONEPEZIL 10 MG TABLET PO SCH (21:07)
[2021-09-06] MEDS: LACTATED RINGERS 1,000 ML IV SCH ×3 (02:30→23:21)
[2021-09-06 06:15] LABS: Basophils % 0.3 % (0.0-0.8); Eosinophils # 0.3 10*3/uL (0.0-0.87); Eosinophils % 2.8 % (0.00-10.9); Hematocrit 32.3 VOL% (35.7-47.0); Immature Granulocytes % 0.6 %; Immature Granulocytes Absolute 0.06 #; Lymphocytes % 10.5 % (21.3-54.2); Mean Corpuscular HGB Conc 32.2 GM/DL (32-36); Mean Corpuscular Volume 90.7 FL (87-102); Monocytes % 9.2 % (1.7-12.7); Neutrophils % 76.6 % (38.7-73.9); Red Cell Distribution Width 15.9 % (9.3-17.3); White Blood Count 9.4 T/CUMM (4-12)
[2021-09-06 06:16] LABS: Hemoglobin 10.4 GM/DL (12.0-16.0); Platelet Count 59 T/CUMM (130-400); Red Blood Count 3.56 MC/CUMM (3.8-5.5)
[2021-09-06 06:36] LABS: Platelet Estimate Decreased
[2021-09-06 06:46] LABS: Calcium 8.4 MG/DL (8.5-10.1); Osmolality,Calculated 317.1 MOS/KG (273-304); Potassium 4.3 MMOL/L (3.5-5.1)
[2021-09-06] MEDS: ALBUTEROL 1.25 MG/3 ML NEB RESP TX SCH ×3 (08:18→21:03)
[2021-09-06] MEDS: cloNIDine 0.1 MG TABLET PO SCH ×2 (09:00→21:36)
[2021-09-06] MEDS: PANTOPRAZOLE 40 MG TABLET PO SCH (09:00)
[2021-09-06] MEDS: ASPIRIN EC 81 MG TABLET PO SCH (09:00)
[2021-09-06] MEDS: CLOPIDOGREL 75 MG TABLET PO SCH (09:00)
[2021-09-06] MEDS: DOCUSATE SODIUM 100 MG CAPSULE PO SCH ×2 (09:01→21:35)
[2021-09-06] MEDS: carvediloL 12.5 MG TABLET PO SCH ×2 (09:01→17:21)
[2021-09-06] MEDS: MEMANTINE 10 MG TABLET PO SCH ×2 (09:01→21:35)
[2021-09-06] MEDS: ATORVASTATIN 40 MG TABLET PO SCH (09:01)
[2021-09-06] MEDS: INSULIN LISPRO 100 UNIT/ML SUBCUT SCH ×4 (09:02→21:40)
[2021-09-06] MEDS: DONEPEZIL 10 MG TABLET PO SCH (21:35)
[2021-09-06] MEDS: MAGNESIUM CHLORIDE 64 MG TABLET PO SCH (21:35)
[2021-09-06] MEDS: OLANZapine 5 MG TABLET PO SCH (21:35)
[2021-09-06] MEDS: ACETAMINOPHEN 325 MG TABLET PO PRN (21:35)
[2021-09-06 22:24] LABS: Hyaline Casts,Urine 1 /LPF (0-3); Squamous Epithelial Cell,Urine Occasional /HPF (0-10)
[2021-09-06 22:27] LABS: Bilirubin,Urine Negative (Negative); Glucose,Urine (UA) Negative (Negative); Ketones,Urine Negative (Negative); Nitrite,Urine Negative (Negative); Protein,Urine 100 mg/dL (Negative); Urine Appearance Clear (Clear); Urine Color Yellow (Yellow); Urine pH 5.5 (4.5-8.0)
[2021-09-06 22:28] LABS: Blood, Urine Small mg/dL (Negative); Urine Urobilinogen 0.2 eU/dL (<2.0)
[2021-09-07 05:29] LABS: Basophils % 0.3 % (0.0-0.8); Eosinophils # 0.3 10*3/uL (0.0-0.87); Eosinophils % 3.7 % (0.00-10.9); Hematocrit 32.8 VOL% (35.7-47.0); Hemoglobin 10.5 GM/DL (12.0-16.0); Immature Granulocytes % 0.5 %; Immature Granulocytes Absolute 0.04 #; Lymphocytes # 0.7 10*3/uL (1.4-4.0); Lymphocytes % 9.8 % (21.3-54.2); Mean Corpuscular Volume 89.6 FL (87-102); Mean Platelet Volume 13.8 FL (9.6-12.0); Monocytes % 11.2 % (1.7-12.7); Neutrophils % 74.5 % (38.7-73.9); Red Blood Count 3.66 MC/CUMM (3.8-5.5); Red Cell Distribution Width 15.8 % (9.3-17.3); White Blood Count 7.5 T/CUMM (4-12)
[2021-09-07 05:32] LABS: Platelet Count 58 T/CUMM (130-400)
[2021-09-07 05:46] LABS: Albumin 1.4 G/DL (3.4-5.0); Bilirubin,Total 0.6 MG/DL (0.20-1.00); Calcium 8.4 MG/DL (8.5-10.1); Osmolality,Calculated 311.1 MOS/KG (273-304); Potassium 4.4 MMOL/L (3.5-5.1); Total Protein 4.4 G/DL (6.4-8.2)
[2021-09-07 05:53] LABS: Hypochromia Slight; Microcytosis Slight; Platelet Estimate Decreased
[2021-09-07] MEDS: LACTATED RINGERS 1,000 ML IV SCH ×4 (05:58→22:29)
[2021-09-07] MEDS: ALBUTEROL 1.25 MG/3 ML NEB RESP TX SCH ×2 (07:43→14:47)
[2021-09-07] MEDS: ASPIRIN EC 81 MG TABLET PO SCH (09:07)
[2021-09-07] MEDS: CLOPIDOGREL 75 MG TABLET PO SCH (09:07)
[2021-09-07] MEDS: FAMOTIDINE 20 MG TABLET PO SCH ×2 (09:07→22:01)
[2021-09-07] MEDS: cloNIDine 0.1 MG TABLET PO SCH ×2 (09:07→22:00)
[2021-09-07] MEDS: ATORVASTATIN 40 MG TABLET PO SCH (09:07)
[2021-09-07] MEDS: DOCUSATE SODIUM 100 MG CAPSULE PO SCH ×2 (09:07→22:01)
[2021-09-07] MEDS: INSULIN LISPRO 100 UNIT/ML SUBCUT SCH ×4 (09:08→22:27)
[2021-09-07] MEDS: MEMANTINE 10 MG TABLET PO SCH ×2 (09:08→22:01)
[2021-09-07] MEDS: carvediloL 12.5 MG TABLET PO SCH ×2 (09:08→18:19)
[2021-09-07] MEDS: ACETAMINOPHEN 325 MG TABLET PO PRN (22:01)
[2021-09-07] MEDS: OLANZapine 5 MG TABLET PO SCH (22:01)
[2021-09-07] MEDS: MAGNESIUM CHLORIDE 64 MG TABLET PO SCH (22:01)
[2021-09-07] MEDS: DONEPEZIL 10 MG TABLET PO SCH (22:01)
[2021-09-08] MEDS: ALBUTEROL 1.25 MG/3 ML NEB RESP TX SCH ×4 (00:42→23:55)
[2021-09-08 08:04] LABS: Basophils % 0.6 % (0.0-0.8); Eosinophils # 0.3 10*3/uL (0.0-0.87); Eosinophils % 4.7 % (0.00-10.9); Hematocrit 32.5 VOL% (35.7-47.0); Hemoglobin 10.6 GM/DL (12.0-16.0); Immature Granulocytes % 0.6 %; Immature Granulocytes Absolute 0.04 #; Lymphocytes # 0.8 10*3/uL (1.4-4.0); Lymphocytes % 12.2 % (21.3-54.2); Mean Corpuscular HGB Conc 32.6 GM/DL (32-36); Mean Corpuscular Volume 90.8 FL (87-102); Mean Platelet Volume 14.1 FL (9.6-12.0); Monocytes % 13.2 % (1.7-12.7); Neutrophils % 68.7 % (38.7-73.9); Platelet Count 74 T/CUMM (130-400); Red Blood Count 3.58 MC/CUMM (3.8-5.5); Red Cell Distribution Width 15.8 % (9.3-17.3); White Blood Count 6.4 T/CUMM (4-12)
[2021-09-08 08:13] LABS: Calcium 8.2 MG/DL (8.5-10.1); Osmolality,Calculated 305.1 MOS/KG (273-304)
[2021-09-08 08:24] LABS: Platelet Estimate Decreased
[2021-09-08] MEDS: MEMANTINE 10 MG TABLET PO SCH ×2 (09:25→20:31)
[2021-09-08] MEDS: ATORVASTATIN 40 MG TABLET PO SCH (09:25)
[2021-09-08] MEDS: DOCUSATE SODIUM 100 MG CAPSULE PO SCH ×2 (09:25→20:31)
[2021-09-08] MEDS: cloNIDine 0.1 MG TABLET PO SCH ×2 (09:25→20:30)
[2021-09-08] MEDS: FAMOTIDINE 20 MG TABLET PO SCH ×2 (09:25→20:30)
[2021-09-08] MEDS: CLOPIDOGREL 75 MG TABLET PO SCH (09:25)
[2021-09-08] MEDS: ASPIRIN EC 81 MG TABLET PO SCH (09:25)
[2021-09-08] MEDS: carvediloL 12.5 MG TABLET PO SCH ×2 (09:25→16:46)
[2021-09-08] MEDS: INSULIN LISPRO 100 UNIT/ML SUBCUT SCH ×4 (09:29→23:04)
[2021-09-08] MEDS: LACTATED RINGERS 1,000 ML IV SCH ×3 (14:15→23:25)
[2021-09-08] MEDS: LACTULOSE 20 GM/30 ML UDCUP PO SCH (15:35)
[2021-09-08] MEDS: MAGNESIUM CHLORIDE 64 MG TABLET PO SCH (20:30)
[2021-09-08] MEDS: DONEPEZIL 10 MG TABLET PO SCH (20:31)
[2021-09-08] MEDS: OLANZapine 5 MG TABLET PO SCH (20:31)
[2021-09-09 05:48] LABS: Basophils % 0.5 % (0.0-0.8); Eosinophils # 0.3 10*3/uL (0.0-0.87); Hematocrit 35.8 VOL% (35.7-47.0); Hemoglobin 11.4 GM/DL (12.0-16.0); Immature Granulocytes % 1.1 %; Immature Granulocytes Absolute 0.08 #; Lymphocytes # 0.8 10*3/uL (1.4-4.0); Lymphocytes % 10.9 % (21.3-54.2); Mean Corpuscular HGB Conc 31.8 GM/DL (32-36); Mean Corpuscular Volume 89.9 FL (87-102); Mean Platelet Volume 13.7 FL (9.6-12.0); Monocytes % 12.3 % (1.7-12.7); Neutrophils % 71.2 % (38.7-73.9); Platelet Count 88 T/CUMM (130-400); Red Blood Count 3.98 MC/CUMM (3.8-5.5); Red Cell Distribution Width 15.3 % (9.3-17.3); White Blood Count 7.5 T/CUMM (4-12)
[2021-09-09 05:53] LABS: Calcium 8.5 MG/DL (8.5-10.1); Osmolality,Calculated 305.1 MOS/KG (273-304); Potassium 3.7 MMOL/L (3.5-5.1)
[2021-09-09] MEDS: LACTATED RINGERS 1,000 ML IV SCH ×2 (05:53→14:52)
[2021-09-09] MEDS: ALBUTEROL 1.25 MG/3 ML NEB RESP TX SCH ×3 (07:25→22:50)
[2021-09-09] MEDS: CLOPIDOGREL 75 MG TABLET PO SCH (08:54)
[2021-09-09] MEDS: DOCUSATE SODIUM 100 MG CAPSULE PO SCH ×2 (08:54→21:34)
[2021-09-09] MEDS: MEMANTINE 10 MG TABLET PO SCH ×2 (08:54→21:34)
[2021-09-09] MEDS: ATORVASTATIN 40 MG TABLET PO SCH (08:55)
[2021-09-09] MEDS: LACTULOSE 20 GM/30 ML UDCUP PO SCH (08:55)
[2021-09-09] MEDS: cloNIDine 0.1 MG TABLET PO SCH ×2 (08:55→21:34)
[2021-09-09] MEDS: FAMOTIDINE 20 MG TABLET PO SCH ×2 (08:55→21:34)
[2021-09-09] MEDS: ASPIRIN EC 81 MG TABLET PO SCH (08:55)
[2021-09-09] MEDS: carvediloL 12.5 MG TABLET PO SCH ×2 (08:55→17:37)
[2021-09-09] MEDS: INSULIN LISPRO 100 UNIT/ML SUBCUT SCH ×4 (09:32→21:46)
[2021-09-09] MEDS: MAGNESIUM CHLORIDE 64 MG TABLET PO SCH (21:34)
[2021-09-09] MEDS: DONEPEZIL 10 MG TABLET PO SCH (21:45)
[2021-09-09] MEDS: OLANZapine 5 MG TABLET PO SCH (21:46)
[2021-09-10 06:06] LABS: Basophils # 0.1 10*3/uL (0.0-0.2); Basophils % 0.6 % (0.0-0.8); Eosinophils # 0.1 10*3/uL (0.0-0.87); Eosinophils % 1.7 % (0.00-10.9); Hematocrit 34.7 VOL% (35.7-47.0); Hemoglobin 11.4 GM/DL (12.0-16.0); Immature Granulocytes % 0.9 %; Immature Granulocytes Absolute 0.07 #; Lymphocytes # 0.8 10*3/uL (1.4-4.0); Mean Corpuscular HGB Conc 32.9 GM/DL (32-36); Mean Corpuscular Volume 88.7 FL (87-102); Mean Platelet Volume 12.9 FL (9.6-12.0); Monocytes % 11.2 % (1.7-12.7); Neutrophils % 75.6 % (38.7-73.9); Platelet Count 109 T/CUMM (130-400); Red Blood Count 3.91 MC/CUMM (3.8-5.5); Red Cell Distribution Width 15.2 % (9.3-17.3); White Blood Count 7.8 T/CUMM (4-12)
[2021-09-10 06:48] LABS: Calcium 8.4 MG/DL (8.5-10.1); Potassium 4.1 MMOL/L (3.5-5.1)
[2021-09-10] MEDS: ALBUTEROL 1.25 MG/3 ML NEB RESP TX SCH (07:09)
[2021-09-10 07:55] VITALS: BP 142/86
[2021-09-10] MEDS: CLOPIDOGREL 75 MG TABLET PO SCH (09:05)
[2021-09-10] MEDS: carvediloL 12.5 MG TABLET PO SCH (09:05)
[2021-09-10] MEDS: LACTULOSE 20 GM/30 ML UDCUP PO SCH (09:05)
[2021-09-10] MEDS: MEMANTINE 10 MG TABLET PO SCH (09:05)
[2021-09-10] MEDS: ASPIRIN EC 81 MG TABLET PO SCH (09:05)
[2021-09-10] MEDS: ATORVASTATIN 40 MG TABLET PO SCH (09:05)
[2021-09-10] MEDS: DOCUSATE SODIUM 100 MG CAPSULE PO SCH (09:05)
[2021-09-10] MEDS: cloNIDine 0.1 MG TABLET PO SCH (09:05)
[2021-09-10] MEDS: FAMOTIDINE 20 MG TABLET PO SCH (09:05)
== END 2021-09-10 11:38 | DRG 522 ==
LOC: EDUNIT# → EDBD → N.ED 04:54 → N.3E 09:20 → SUATTDRO 14:21 → N.3E 14:21
PROVIDERS: ADMIT Internal Medicine; ATTEND Internal Medicine